=== PATIENT | female | born 1990 | race Two or more races ===

== ENCOUNTER 2018-05-11 19:58 | Emergency (ER) | payer SELFPAY ==
[~2018-05-11] VITALS: Ht 170.2 cm; Wt 69.0 kg
[2018-05-11] MEDS ORDERED: ZIPRASIDONE MESYLATE 20MG/VIAL IM ONE (22:30)
[2018-05-11] MEDS ORDERED: ZIPRASIDONE HCL 20MG CAPSULE PO ONE (22:30)
[2018-05-12 07:55] VITALS: BP 119/72
== END 2018-05-12 08:36 | disposition home or self-care (01) ==
LOC: ER 19:58
DX: F29 Unspecified psychosis not due to a substance or known physiological condition (principal)
CPT/HCPCS: 81025; 96372; 99284; J3486; Z7610; 99283